=== PATIENT | male | born 1945 | race American Indian/Alaskan Native ===

== ENCOUNTER 2021-02-15 15:11 | Emergency (ER) | payer OTHER ==
[2021-02-15 15:17] VITALS: BP 147/69; PULSE 82; TEMP 97; BMI 23.0
[2021-02-15] MEDS ORDERED: SODIUM PHOSPHATE/NA BIPHOS 133 ML ENEMA PR ONE (16:34)
[2021-02-15] MEDS ORDERED: POLYETHYLENE GLYCOL 3350 119 GM BTL PO ONE (17:23)
[2021-02-15] MEDS ORDERED: GLYCERIN 1 RECTAL SUPPOSITORY, ADULT PR ONE (17:23)
[2021-02-15] MEDS ORDERED: DOCUSATE SODIUM 100 MG CAPSULE (FP) PO ONE ×2 (17:23→17:30)
[2021-02-15] MEDS ORDERED: GLYCERIN 1 RECTAL SUPPOSITORY, PEDIATRIC RC ONE (17:30)
== END 2021-02-15 18:35 | disposition home or self-care (01) ==
LOC: JER 15:11
DX: K59.00 Constipation, unspecified (principal)
CPT/HCPCS: 99283-25

== ENCOUNTER 2021-08-24 02:21 | Inpatient (IN) | payer OTHER ==
[2021-08-24 03:51] LABS: BASO % 0.4 % (0-2.0); EOS % 1.7 % (0-4.5); HEMATOCRIT 26.4 % (35.4-49); HEMOGLOBIN 8.8 GM/dL (11.7-16.9); LYMPH % 14.5 % (8-40); MCH 31.2 pg (25.7-33.7); MCHC 33.1 g/dl (32.0-35.9); MEAN CELL VOLUME 94.2 fl (80-96); MEAN PLT VOLUME 12.2 fl (7.5-11.1); MONO % 8.5 % (3.8-10.2); NEUT % 74.9 % (42.8-82.8); PLATELET COUNT 115 10^3/uL (134-434); RBC 2.81 M/mm3 (4.00-5.60); RDW 14.6 % (11.9-15.9); WHITE BLOOD COUNT 6.2 K/mm3 (4.0-10.0)
[2021-08-24 04:01] LABS: EPI CELLS 1 /uL (0-25.1); HYALINE CASTS 0 /uL (0-3.1); URINE APPEARANCE CLEAR; URINE BACTERIA 0 /uL (0-1359); URINE BILIRUBIN NEGATIVE (NEGATIVE); URINE COLOR YELLOW; URINE GLUCOSE (UA) 1+ (NEGATIVE); URINE KETONE NEGATIVE (NEGATIVE); URINE LEUK ESTERASE NEGATIVE (NEGATIVE); URINE NITRITE NEGATIVE (NEGATIVE); URINE PROTEIN 2+ (NEGATIVE); URINE RBC 0 /uL (0-23.9); URINE UROBILINOGEN 0.2 mg/dL (0.2-1.0); URINE WBC 2 /uL (0-25.8)
[2021-08-24 04:11] LABS: CALCIUM 8.2 mg/dL (8.5-10.1)
[2021-08-24 04:12] LABS: ALBUMIN 3.3 g/dl (3.4-5.0); BLOOD UREA NITROGEN 48.4 mg/dL (7-18)
[2021-08-24 04:17] LABS: BILIRUBIN,TOTAL 0.3 mg/dL (0.2-1); TOT PROT 6.6 g/dl (6.4-8.2)
[2021-08-24] MEDS ORDERED: LACTATED RINGERS SOLUTION 1000 ML INFUS.BAG IV ONE (04:23)
[2021-08-24 11:48] LABS: RETICULOCYTES 2.22 % (0.5-1.5)
[2021-08-24] MEDS ORDERED: HEPARIN NA (PORCINE) 5,000 UNITS/ML 1ML VIAL ONE (14:20)
[2021-08-24] MEDS: HEPARIN NA (PORCINE) 5,000 UNITS/ML 1ML VIAL SQ SCH ×2 (14:26→22:46)
[2021-08-24] MEDS: LEVOTHYROXINE NA 75 MCG TABLET (FP) PO SCH (14:26)
[2021-08-24] MEDS: amLODIPine BESYLATE 10 MG TABLET (FP) PO SCH (14:27)
[2021-08-24] MEDS ORDERED: DOCUSATE SODIUM 100 MG CAPSULE (FP) PO PRN (17:30)
[2021-08-24] MEDS ORDERED: SODIUM CHLORIDE 1,000 ML IV SCH ×2 (18:00)
[2021-08-24] MEDS ORDERED: DEXTROSE 5%-0.45% SALINE 1,000 ML IV SCH (18:30)
[2021-08-24] MEDS: ATORVASTATIN CA 40 MG TABLET (FP) PO SCH (22:46)
[2021-08-25] MEDS: HEPARIN NA (PORCINE) 5,000 UNITS/ML 1ML VIAL SQ SCH ×3 (06:26→21:29)
[2021-08-25] MEDS: LEVOTHYROXINE NA 75 MCG TABLET (FP) PO SCH (06:26)
[2021-08-25 08:08] LABS: HEMATOCRIT 24.2 % (35.4-49); HEMOGLOBIN 8.1 GM/dL (11.7-16.9); MCH 31.5 pg (25.7-33.7); MCHC 33.4 g/dl (32.0-35.9); MEAN CELL VOLUME 94.4 fl (80-96); MEAN PLT VOLUME 13.3 fl (7.5-11.1); PLATELET COUNT 116 10^3/uL (134-434); RBC 2.56 M/mm3 (4.00-5.60); RDW 14.7 % (11.9-15.9); WHITE BLOOD COUNT 3.9 K/mm3 (4.0-10.0)
[2021-08-25 08:37] LABS: BLOOD UREA NITROGEN 46.4 mg/dL (7-18)
[2021-08-25 08:38] LABS: MAGNESIUM 2.2 mg/dL (1.8-2.4)
[2021-08-25 08:41] LABS: PHOSPHOROUS 3.5 mg/dL (2.5-4.9)
[2021-08-25] MEDS ORDERED: LOSARTAN POTASSIUM 50 MG TABLET PO SCH (10:00)
[2021-08-25] MEDS ORDERED: POLYETHYLENE GLYCOL (HEALTHYLAX) 3350 17 GM PACKET PO SCH (10:00)
[2021-08-25] MEDS: amLODIPine BESYLATE 10 MG TABLET (FP) PO SCH (10:14)
[2021-08-25] MEDS: DOCUSATE SODIUM 100 MG CAPSULE (FP) PO SCH ×2 (10:14→21:28)
[2021-08-25] MEDS: POLYETHYLENE GLYCOL (HEALTHYLAX) 3350 17 GM PACKET PO SCH ×2 (10:14→21:59)
[2021-08-25] MEDS: FAMOTIDINE 20 MG TABLET PO SCH (10:14)
[2021-08-25 13:31] VITALS: BMI 22.3
[2021-08-25] MEDS ORDERED: IRON SUCROSE INJECTION 100 MG in SODIUM CHLORIDE 95 ML IVPB ONE (13:45)
[2021-08-25] MEDS ORDERED: EPOETIN ALFA-EPBX 20,000 UNIT/ML VIAL SQ ONE (13:45)
[2021-08-25] MEDS ORDERED: PT OWN MED DRAWER 7, Y5N ONE (14:45)
[2021-08-25] MEDS: CALCITRIOL 0.25 MCG CAPSULE (FP) PO SCH (14:50)
[2021-08-25] MEDS ORDERED: INSULIN (LEVEMIR) 100 UNITS/ML UNITS SQ SCH ×3 (15:38→22:00)
[2021-08-25] MEDS ORDERED: INSULIN (LEVEMIR) 100 UNITS/ML UNITS SQ ONE (15:38)
[2021-08-25] MEDS: hydrALAZINE HCL 10 MG TABLET PO SCH ×2 (16:11→21:28)
[2021-08-25] MEDS: INSULIN SLIDING SCALE (NOVOLOG) 1 VIAL SQ SCH ×2 (16:32→21:51)
[2021-08-25] MEDS: ATORVASTATIN CA 40 MG TABLET (FP) PO SCH (21:28)
[2021-08-25] MEDS ORDERED: FLU VACC QS2021-22(6MOS UP)/PF 60 MCG/0.5 ML SYRINGE IM ONE (22:00)
[2021-08-26] MEDS: LEVOTHYROXINE NA 75 MCG TABLET (FP) PO SCH (06:07)
[2021-08-26] MEDS: HEPARIN NA (PORCINE) 5,000 UNITS/ML 1ML VIAL SQ SCH ×2 (06:07→15:23)
[2021-08-26] MEDS: INSULIN SLIDING SCALE (NOVOLOG) 1 VIAL SQ SCH ×2 (06:16→12:18)
[2021-08-26 07:33] LABS: HEMATOCRIT 25.4 % (35.4-49); HEMOGLOBIN 8.6 GM/dL (11.7-16.9); MCH 31.6 pg (25.7-33.7); MCHC 33.8 g/dl (32.0-35.9); MEAN CELL VOLUME 93.5 fl (80-96); MEAN PLT VOLUME 12.7 fl (7.5-11.1); PLATELET COUNT 120 10^3/uL (134-434); RBC 2.72 M/mm3 (4.00-5.60); RDW 14.5 % (11.9-15.9); WHITE BLOOD COUNT 5.5 K/mm3 (4.0-10.0)
[2021-08-26 08:26] LABS: CALCIUM 8.2 mg/dL (8.5-10.1)
[2021-08-26 08:30] LABS: CREATININE 3.1 mg/dL (0.55-1.3)
[2021-08-26] MEDS: CALCITRIOL 0.25 MCG CAPSULE (FP) PO SCH (10:00)
[2021-08-26] MEDS: hydrALAZINE HCL 10 MG TABLET PO SCH (10:00)
[2021-08-26] MEDS: amLODIPine BESYLATE 10 MG TABLET (FP) PO SCH (10:00)
[2021-08-26] MEDS: FAMOTIDINE 20 MG TABLET PO SCH (10:00)
[2021-08-26] MEDS: DOCUSATE SODIUM 100 MG CAPSULE (FP) PO SCH (10:00)
[2021-08-26] MEDS: POLYETHYLENE GLYCOL (HEALTHYLAX) 3350 17 GM PACKET PO SCH (10:00)
[2021-08-26 15:12] VITALS: BP 130/55; PULSE 71; TEMP 98.5
== END 2021-08-26 17:45 | disposition home or self-care (01) | DRG 637 ==
LOC: JER 02:21 → JERBED 08:42 → OBSVTOIN 10:03 → J4S 22:23
PROVIDERS: ADMIT Internal Medicine; ATTEND Internal Medicine
DX: E11.649 Type 2 diabetes mellitus with hypoglycemia without coma (principal); G93.41 Metabolic encephalopathy; R00.1 Bradycardia, unspecified; N18.4 Chronic kidney disease, stage 4 (severe); E11.22 Type 2 diabetes mellitus with diabetic chronic kidney disease; E03.9 Hypothyroidism, unspecified; D50.9 Iron deficiency anemia, unspecified; I12.9 Hypertensive chronic kidney disease with stage 1 through stage 4 chronic kidney disease, or unspecified chronic kidney disease; D63.1 Anemia in chronic kidney disease; E11.21 Type 2 diabetes mellitus with diabetic nephropathy; E78.5 Hyperlipidemia, unspecified; E83.51 Hypocalcemia; K59.00 Constipation, unspecified; R31.29 Other microscopic hematuria; D69.6 Thrombocytopenia, unspecified
CPT/HCPCS: 36415; 76775-TC; 80048; 80053; 81003; 82272; 82607; 82728; 82746; 82962; 83036; 83540; 83550; 83615; 83735; 84100; 84443; 84484; 85025; 85027; 85045; 87086; 93005; 93010; 93306-TC; 97116-GP; 97161-GP; 99285-25; C9803; G0378; J1644; J1756; U0003; U0005

== ENCOUNTER 2022-01-04 04:52 | Day surgery (SDC) | payer OTHER ==
[2021-12-31 13:27] VITALS: BMI 21.4
[2022-01-04] MEDS ORDERED: PAPAVERINE HCL 30 MG/1 ML 10 ML VIAL NR ONE (15:05)
[2022-01-04] MEDS ORDERED: HEPARIN NA (PORCINE) 5,000 UNITS/ML 1ML VIAL ONE (15:05)
[2022-01-04] MEDS ORDERED: POVIDONE-IODINE OINTMENT 10% - 28.4 GM TUBE ONE (15:05)
[2022-01-04] MEDS ORDERED: LIDOCAINE HCL 1%, 10 MG/ML (20ML VIAL) ONE (15:06)
[2022-01-04] MEDS ORDERED: LIDOCAINE HCL/PF 2% SDV 5ML VIAL ONE (15:31)
[2022-01-04] MEDS ORDERED: ceFAZolin SODIUM 1 GM VIAL ONE (15:31)
[2022-01-04] MEDS ORDERED: PROPOFOL 20 ML ONE ×2 (15:31)
[2022-01-04] MEDS ORDERED: fentaNYL CITRATE 250 MCG/5 ML VIAL ONE (17:30)
[2022-01-04] MEDS ORDERED: MIDAZOLAM HCL 2 MG/2 ML SINGLE DOSE VIAL ONE (17:30)
[2022-01-04] MEDS ORDERED: ceFAZolin SODIUM 1 GM VIAL IVPB ONE (17:37)
[2022-01-04] MEDS ORDERED: LIDOCAINE HCL 1%, 10 MG/ML (20ML VIAL) SQ ONE (18:02)
[2022-01-04] MEDS ORDERED: HEPARIN NA (PORCINE) 5,000 UNITS/ML 1ML VIAL SQ ONE (18:03)
[2022-01-04] MEDS ORDERED: oxyCODONE HCL 5 MG TABLET PO PRN ×2 (18:20)
[2022-01-04] MEDS ORDERED: ONDANSETRON 4 MG/2 ML VIAL IVPUSH PRN (18:20)
[2022-01-04] MEDS ORDERED: LACTATED RINGERS SOLUTION 1,000 ML IV SCH (18:30)
[2022-01-04] MEDS ORDERED: oxyCODONE HCL 5 MG TABLET ONE (19:49)
[2022-01-04 20:18] VITALS: BP 142/60; PULSE 62; TEMP 98.2
== END 2022-01-04 20:22 | disposition home or self-care (01) ==
LOC: JASU-SURG 04:52
PROVIDERS: ATTEND Surgery
PROC: 031C0ZF Bypass Left Radial Artery to Lower Arm Vein, Open Approach (ICD-10-PCS; principal; 2022-01-04 16:00)
DX: I12.0 Hypertensive chronic kidney disease with stage 5 chronic kidney disease or end stage renal disease (principal); N18.6 End stage renal disease
CPT/HCPCS: 82962; 94760; J1644

== ENCOUNTER 2022-11-09 05:02 | Emergency (ER) | payer OTHER ==
[2022-11-09 05:22] VITALS: BMI 21.4
[2022-11-09 06:24] LABS: HEMATOCRIT 34.8 % (35.4-49); HEMOGLOBIN 11.1 GM/dL (11.7-16.9); MCH 29.4 pg (25.7-33.7); MEAN CELL VOLUME 91.8 fl (80-96); MEAN PLT VOLUME 10.3 fl (7.5-11.1); PLATELET COUNT 183 10^3/uL (134-434); RBC 3.79 M/mm3 (4.00-5.60); RDW 15.3 % (11.9-15.9)
[2022-11-09] MEDS ORDERED: ACETAMINOPHEN 1000 MG/100 ML BAG IVPB ONE (06:37)
[2022-11-09 06:39] LABS: PROTHROMBIN TIME (PATIENT) 11.5 SEC (9.7-13.0)
[2022-11-09 06:41] LABS: ACTIVATED PTT 23.4 SECONDS (25.2-36.5)
[2022-11-09 06:45] LABS: CALCIUM 9.4 mg/dL (8.5-10.1)
[2022-11-09 06:46] LABS: ALBUMIN 3.7 g/dl (3.4-5.0); BLOOD UREA NITROGEN 53.1 mg/dL (7-18)
[2022-11-09 06:49] LABS: CREATININE 3.7 mg/dL (0.55-1.3)
[2022-11-09 06:50] LABS: BILIRUBIN,TOTAL 0.5 mg/dL (0.2-1); TOT PROT 7.6 g/dl (6.4-8.2)
[2022-11-09] MEDS ORDERED: ACETAMINOPHEN INJECTION 100 ML IVPB ONE (06:59)
[2022-11-09 08:12] VITALS: RESP 16
[2022-11-09 08:32] LABS: EPI CELLS 2 /uL (0-25.1); HYALINE CASTS 0 /uL (0-3.1); PH,URINE 5.5 (5.0-8.0); URINE APPEARANCE CLEAR; URINE BACTERIA 27 /uL (0-1359); URINE BILIRUBIN NEGATIVE (NEGATIVE); URINE COLOR YELLOW; URINE GLUCOSE (UA) 1+ (NEGATIVE); URINE KETONE NEGATIVE (NEGATIVE); URINE LEUK ESTERASE NEGATIVE (NEGATIVE); URINE NITRITE NEGATIVE (NEGATIVE); URINE PROTEIN 3+ (NEGATIVE); URINE RBC 6 /uL (0-23.9); URINE UROBILINOGEN 0.2 mg/dL (0.2-1.0); URINE WBC 4 /uL (0-25.8)
[2022-11-09 09:18] LABS: ANISOCYTOSIS 0; HELMET CELLS 0; HOWELL-JOLLY BODIES 0; MACROCYTOSIS 0; OVALOCYTE 0; ROULEAU 0; SICKELED CELLS 0; TARGET CELLS 0; TEAR DROP CELLS 0; TOXIC GRANULATION 0
[2022-11-09 10:15] LABS: HEMATOCRIT 31.9 % (35.4-49); HEMOGLOBIN 10.3 GM/dL (11.7-16.9); MCH 29.3 pg (25.7-33.7); MCHC 32.2 g/dl (32.0-35.9); MEAN PLT VOLUME 10.7 fl (7.5-11.1); PLATELET COUNT 175 10^3/uL (134-434); RBC 3.51 M/mm3 (4.00-5.60); RDW 15.4 % (11.9-15.9); WHITE BLOOD COUNT 11.6 K/mm3 (4.0-10.0)
[2022-11-09 11:31] VITALS: BP 128/55; PULSE 85; TEMP 99.2
== END 2022-11-09 13:09 | disposition admitted as inpatient to this hospital (09) ==
LOC: JER 05:02
PROC: 3E033GC Introduction of Other Therapeutic Substance into Peripheral Vein, Percutaneous Approach (ICD-10-PCS; principal; 2022-11-09)
DX: K62.5 Hemorrhage of anus and rectum (principal)
CPT/HCPCS: 0241U-QW; 36415; 71046-TC-FY; 74176-TC; 80053; 81003; 82962; 83605; 83690; 84484; 85025; 85027; 85610; 85730; 93005; 93010; 99285-25